=== PATIENT | male | born 1955 | race Caucasian/White ===

== ENCOUNTER 2018-05-23 02:15 | Observation (INO) | payer MEDICAID ==
[2018-05-23] VITALS (12 sets, daily range): BP systolic 98–136; BP diastolic 60–85; Ht 175.3 cm; Wt 85.1 kg
[~2018-05-23] VITALS: Ht 175.3 cm; Wt 85.1 kg
--- NOTE | ~2018-05-23 | HEMODYNAMI ---
PATIENT:MONSTER NATH MEDICAL RECORD: [id number] : 57 LOCATION:[address] [id number] ADMISSION DATE: 05/23/18 Generatedon:05/23/201817:28 Patient name: MONSTER NATH Patient #: [id number] SSN: : 1955 Date of study: 05/23/2018 Page: Of Hemodynamic Procedure Report Patient Data Patient Demographics Procedure consent was obtained First Name: MONSTER Gender: Male Last Name: PHAM : 1955 Patient #: [id number] Age: 63 year(s) Race: Unknown Additional ID: [id number] Contact details [address]: [address] [place], [place] [address] Phone: [phone] State: [place] City: [place] Zip code: [address] Past Medical History Allergies Allergen Reaction Date Comments Reported Other allergy 05/23/2018 Admission Admission Data Admission Date: 05/23/2018 Admission Time: 3:36 Room #: D.2128 Lab Results Lab Result Date: 05/23/2018 Lab Result Time: 0:00 Biochemistry Name Units Result Min Max BUN mg/dl 9 --(*---)-- 7 18 Creatinine mg/dl 1 --(--*-)-- 0.6 1.3 CBC Name Units Result Min Max Hematocrit % 53.3 --(---*)-- 42 54 Hemoglobin g/dl 19.2 --(----)-* 13.5 17.5 Procedure Procedure Types Cath Procedure Diagnostic Procedure C [facility] w/Coronaries PCI Procedure Coronary Stent Coronary Stent Initial Procedure Description Procedure Date Procedure Date: 05/23/2018 Procedure Start Time: 17:14 Procedure End Time: 17:26 Procedure Staff Name Function Jake Elkins MD Performing Physician Brant Brown RT Diagnostic Tech Annabelle Cheema RT Scrub Yovani Robins RN Nurse Costa Perry RT Monitor Procedure Data Cath Procedure Fluoroscopy Diagnostic fluoroscopy Total fluoroscopy Time: 2.9 time: 2.9 min min Diagnostic fluoroscopy Total fluoroscopy dose: 167 dose: 167 mGy mGy Contrast Material Contrast Material Type Amount (ml) Isovue 300 73 Entry Location Entry Primary Successful Side Size Upsize Upsize Entry Closure Newby ccessful Closure Location (Fr) 1 (Fr) 2 (Fr) Remarks Device Remarks Radial Right 6 Fr Mechanical artery Short Compression Estimated blood loss: 10 ml Diagnostic catheters Device Type Used For End Catheter Placement DIAGNOSTIC Benton 110cm 5 Procedure Fr catheter ([id number]) Procedure Complications No complications Procedure Medications Medication Administration Route Dosage 0.9% NaCl I.V. 100 ml/hr Oxygen etCO2 Nasal cannula 2 l/min Heparin Flush Bag added to field 2 bags (1000units/500ml NS) Lidocaine 2% added to field 20 Radial Cocktail added to field 1 syringe (Verapomil 2mg/Nitro 400mcg/Heparin 1500units) Fentanyl I.V. 50 mcg Versed I.V. 1 mg Radial Cocktail I.A. 1 syringe (Verapomil 2mg/Nitro 400mcg/Heparin 1500units) Fentanyl I.V. 50 mcg Versed I.V. 1 mg Heparin Bolus I.V. 4000 units Integrilin (Bolus 8.5 ml 2mg/ml) Plavix P.O. 600 mg Integrilin (Bolus wasted 1.5 ml 2mg/ml) Hemodynamics Rest HGB: 19.2 (g/dl) Heart Rate: 70 (bpm) Pressure Samples Time Site Value (mmHg) Purpose Heart Use Rate(bpm) 17:17 AO 86/58(71) Snapshot 88 Snapshots Pre Cath Intra NCS Post Cath Vital Signs Time Heart Resp SPO2 etCO2 NIBP Rhythm Pain Sedation Rate (ipm) (%) (mmHg) (mmHg) Status Level (bpm) 17:08:08 73 17 90 0 116/70(84) NSR 0 (11) 10(A) , No pain 17:12:20 67 16 90 0 103/67(80) NSR 0 (11) 9(A) , No pain 17:16:31 95 17 91 0 102/64(86) NSR 0 (11) 9(A) , No pain 17:22:06 82 17 91 0 97/61(76) NSR 0 (11) 9(A) , No pain 17:26:15 81 16 89 0 107/66(92) NSR 0 (11) 10(A) , No pain Medications Time Medication Route Dose Verified Delivered Reason Not es Effectiveness by by 17:06:39 0.9% NaCl I.V. 100 Yovani Yovani Per physician ml/hr Shimon Robins RN RN 17:06:49 Oxygen etCO2 2 l/min Yovani Yovani for low 02 sats Nasal Lorigan Shimon cannula RN RN 17:07:04 Heparin Flush added 2 bags Yovani Yovani used for Bag to Lorigan Shimon procedure (1000units/500ml field RN RN NS) 17:07:13 Lidocaine 2% added 20ml Yovani Yovani for local to vial Lorigan Lorigan anesthetic field RN RN 17:07:33 Radial Cocktail added 1 Yovani Yovani used for (Verapomil to syringe Lorigan Shimon procedure 2mg/Nitro field RN RN 400mcg/Heparin 1500units) 17:11:16 Fentanyl I.V. 50 mcg Yovani Yovani for sedation Shimon Robins RN RN 17:11:23 Versed I.V. 1 mg Yovani Yovani for sedation Shimon Robins RN RN 17:16:34 Radial Cocktail I.A. 1 Yovani Jake for (Verapomil syringe Sharminigan Severo RAHMAN vasodilation 2mg/Nitro RN 400mcg/Heparin 1500units) 17:17:04 Fentanyl I.V. 50 mcg Yovani Yovani for sedation Shimon Robins RN RN 17:17:09 Versed I.V. 1 mg Yovani Yovani for sedation Shimon Robins RN RN 17:20:38 Heparin Bolus I.V. 4000 Jake Yovani for units Severo Robins anticoagulation RN 17:22:07 Integrilin 8.5 ml Jake Yovani for (Bolus 2mg/ml) Severo Robins antiplatelet RN therapy 17:25:28 Plavix P.O. 600 mg Ajke Yovani for Severo Robins antiplatelet RN therapy 17:27:01 Integrilin wasted 1.5 ml Jake Yovani for (Bolus 2mg/ml) Severo Robins antiplatelet RN therapy Procedure Log Time Note 16:45:13 Brant Brown RT(R) sent for patient. Start room use. 16:57:20 Signed procedure consent form obtained from patient. 16:57:21 Diagnostic Cath status Elective 16:57:22 Time tracking: Regular hours (M-F 7:00 - 5:00) 16:57:24 Plan of Care:Hemodynamics will remain stable., Cardiac rhythm will remain stable., Comfort level will be maintained., Respiratory function will remain adequate., Patient/ family verbilizes understanding of procedure., Procedure tolerated without complication., Recovers from procedure without complications.. 16:57:30 Patient received from Med II to CCL 3 Alert and oriented. Tansferred to table in Supine position. 16:57:31 Warm blankets applied, and rk hugger turned on for patient comfort. 16:57:31 Correct patient and procedure confirmed by team. 16:57:32 ECG and BP/O2 sat monitors applied to patient. 17:06:39 0.9% NaCl 100 ml/hr I.V. was administered by Yovani Robins RN; Per physician; 17:06:49 Oxygen 2 l/min etCO2 Nasal cannula was administered by Yovani Robins RN; for low 02 sats; 17:06:57 Vital chart was started 17:07:04 Heparin Flush Bag (1000units/500ml NS) 2 bags added to field was administered by Yovani Robins RN; used for procedure; 17:07:13 Lidocaine 2% 20ml vial added to field was administered by Yovani Robins RN; for local anesthetic; 17:07:33 Radial Cocktail (Verapomil 2mg/Nitro 400mcg/Heparin 1500units) 1 syringe added to field was administered by Yovani Robins RN; used for procedure; 17:07:34 Baseline sample Acquired. 17:07:39 Rhythm: sinus rhythm 17:07:40 Full Disclosure recording started 17:07:41 Pre-procedure instructions explained to patient. 17:07:41 Pre-op teaching completed and patient verbalized understanding. 17:07:49 Family in patients room. 17:08:11 Patient allergic to Other allergy 17:08:18 Is patient on blood thinner?No 17:08:19 Patient diabetic? No. 17:08:23 Previous problem with sedation/anesthesia? No ? 17:08:26 Snore? Yes 17:08:27 Sleep apnea? No 17:08:28 Deviated septum? No 17:08:29 Opens mouth fully? Yes 17:08:29 Sticks out tongue? Yes 17:08:32 Airway obstruction? No ? 17:08:41 Dentures? Yes ? 17:08:44 Pre procedure: right dorsailis pedis pulse 2+ Normal; easily identifiable; not easily obliterated 17:08:46 Modified Thai's test Ulnar < 7 seconds 17:08:48 Patient pain scale 0/10 ?. 17:08:55 IV patent on arrival in right wrist with 0.9% NaCl at [facility]. 17:: Lab Result : BUN 9 mg/dl 17:: Lab Result : Creatinine 1 mg/dl 17:: Lab Result : Hemoglobin 19.2 g/dl 17:: Lab Result : Hematocrit 53.3 % 17::30 Lab results completed and on chart. 17:09:33 Right Radial & Right Groin area was prepped with chlora-prep and draped in sterile fashion 17:09:34 Alarms reviewed by R. N. 17:09:34 Sharps counted by scrub and verified by R.N. 17:09:37 Use device set Radial Dx or PCI 17:09:39 ACIST Syringe (00801) opened to sterile field. 17:09:41 Bag Decanter (2002S) opened to sterile field. 17:09:42 ACIST Hand Control (66939) opened to sterile field. 17:09:42 ACIST Manifold (13200) opened to sterile field. 17:09:43 Tegaderm 4 x 4 (1626W) opened to sterile field. 17:09:45 Medline Cath Pack ([id number]) opened to sterile field. 17:09:45 DIAGNOSTIC WIRE .035 260cm J wire (774561) opened to sterile field. 17:09:46 MBrace Wrist Support ([id number]) opened to sterile field. 17:09:47 SHEATH 6FR Slender (29-8656) opened to sterile field. 17:11:00 --------ALL STOP TIME OUT------ 17:11:00 Final Timeout: patient, procedure, and site verified with staff and physician. All members of the team are in agreement. 17:11:02 Right Radial & Right Groin site verified by team. 17:11:16 Fentanyl 50 mcg I.V. was administered by Yovani Robins RN; for sedation; 17:11:23 Versed 1 mg I.V. was administered by Yovani Robins RN; for sedation; 17:11:32 Maximum allowable Isovue 300 dose 300ml. Physician notified. (300ml for normal creatinines. For patients with creatinine of 1.7 or higher multiply weight(kg) x 5 divided by creatinine.) 17:11:37 Fire Safety Assessment: A--An alcohol-based skin anteseptic being used preoperatively., C--Open oxygen or nitrous oxide is being used., D--An ESU, laser, or fiber-optic light is being used. 17:11:40 Physical assessment completed. ASA score P 2 - A patient with mild systemic disease as per Jake Elkins MD. 17:11:42 Sedation plan: IV Moderate Sedation Medication:Versed, Fentanyl 17:14:23 Procedure started. 17:14:27 Local anesthetic to right radial artery with Lidocaine 2% by Jake Elkins MD.INITIAL ACCESS ONLY 17:15:41 A 6 Fr Short sheath was inserted into the Right Radial artery 17:16:25 Zero performed for pressure channel P1 17:16:27 Zero performed for pressure channel P1 17:16:34 Radial Cocktail (Verapomil 2mg/Nitro 400mcg/Heparin 1500units) 1 syringe I.A. was administered by Jake Elkins MD; for vasodilation; 17:16:39 A DIAGNOSTIC Benton 110cm 5 Fr catheter ([id number]) was advanced over the wire and used for Procedure. 17:16:52 LV angiography performed. 17:16:53 LV gram done using DIMAS 17:16:57 EF : 60 % 17:17:04 Fentanyl 50 mcg I.V. was administered by Yovani Robins RN; for sedation; 17:17:09 Versed 1 mg I.V. was administered by Yovani Robins RN; for sedation; 17:17:17 LCA angiography performed. 17:18:22 RCA angiography performed. 17:18:24 Catheter exchanged over wire. 17:18:27 Use device set SEVERO PCI 17:18:35 GUIDE 6FR AR 2.0 catheter ([id number]) opened to sterile field. 17:18:38 CHOICE PT Extra Support 182cm wire ([id number]) opened to sterile field. 17:18:43 INFLATOR Merit BasixCompak (MH5795) opened to sterile field. 17:20:08 6 Fr AR 2 guide catheter was inserted over the wire 17:20:19 CPTXS wire advanced. 17:20:38 Heparin Bolus 4000 units I.V. was administered by Yovani Robins RN; for anticoagulation; 17::54 Wire advanced across lesion. 17:21:21 Inflate balloon Inflation number: 1 A EUPHORA 2.5 x 20 Balloon ([id number]) was prepped and advanced across the Mid RCA, then inflated to 9 ANDERSON for 0:10 (min:sec). 17::28 Inflation number: 2 The EUPHORA 2.5 x 20 Balloon ([id number]) was reinflated across the Mid RCA, to 11 ANDERSON for 0:10 (min:sec). 17:21:52 Balloon removed over the wire. 17:22:07 Integrilin (Bolus 2mg/ml) 8.5 ml was administered by Yovani Robins RN; for antiplatelet therapy; ::54 Place stent Inflation Number: 3 A INTEGRITY RX 2.5 x 26 stent ([id number]) was prepped and advanced across the Mid RCA. The stent was deployed at 13 ANDERSON for 0:10 (min:sec). 17:24:35 Stent catheter was removed intact over wire. 17:24:36 Wire removed. 17:24:36 Guide catheter removed. 17:24:39 TR BAND Standard ([id number]) opened to sterile field. 17:24:49 Sheath removed intact; hemostasis achieved with Mechanical Compression to the Right Radial artery. 17:24:51 Procedure ended.(Physican Out) 17:25:25 Fluoroscopy time 02.90 minutes. 17:25:28 Plavix 600 mg P.O. was administered by Yovani Robins RN; for antiplatelet therapy; 17:25:29 Fluoroscopy dose: 167 mGy 17:25:29 Flurop Dose total: 167 17:25:32 Contrast amount:Isovue 300 73ml. 17:25:34 Sharps counted by scrub and verified by R.N. 17:25:36 TR band inflated with 11cc of air. 17:25:38 Insertion/operative site no bleeding no hematoma. 17:25:40 Post Procedure Pulses reassessed and unchanged 17:25:41 Post-procedure physical assessment completed. ASA score P 2 - A patient with mild systemic disease as per Jake Elkins MD. 17:25:44 Post procedure rhythm: unchanged. 17:25:47 Estimated blood loss: 10 ml 17:25:47 Post procedure instruction explained to patient.Patient verbalizes understanding. 17:25:48 Patient needs reinforcement of post procedure teaching. 17:25:54 Procedure type changed to Cath procedure, Diagnostic procedure, LHC, LHC w/Coronaries, PCI procedure, Coronary Stent, Coronary Stent Initial 17:25:56 Procedure and supply charges have been captured, reviewed, submitted and are correct. 17:25:59 Procedure Complication : No complications 17:26:19 Vital chart was stopped 17:26:19 See physician's report for complete and final results. 17:26:21 Report given to PCU. 17:26:22 Patient transfered to PCU with Bed. 17:26:24 Procedure ended. 17:26:24 Full Disclosure recording stopped 17:27:01 Integrilin (Bolus 2mg/ml) 1.5 ml wasted was administered by Yovani Robins RN; for antiplatelet therapy; 17:27:06 End room use (Document Last) Intervention Summary Intervention Notes Time ActionType Lesion and Equipment Action# Pressure Duration Attributes Used 17:21:21 Inflate Mid RCA EUPHORA 2.5 1 9 00:10 balloon x 20 Balloon ([id number]) 17:21:28 Reinflate Mid RCA EUPHORA 2.5 2 11 00:10 balloon x 20 Balloon ([id number]) 17:22:54 Place stent Mid RCA INTEGRITY RX 3 13 00:10 2.5 x 26 stent ([id number]) Device Usage Item Name Manufacture Quantity Catalog Number Hospital Part Current [facility] Lot# / Charge Number Stock Stock Serial# Code ACIST Acist 1 97526 276560 077710 570256 20 Syringe Medical (51307) Systems Inc Bag Decanter Microtek 1 2001S 818223 97499 819939 5 () Medical Inc. ACIST Hand Acist 1 55455 939311 952812 954327 5 Control Medical (49205) Systems Inc ACIST Acist 1 22416 495048 128014 444379 5 Manifold Medical (96753) Systems Inc Tegaderm 4 x 3M 1 1626W 742049 810638 976578 5 4 (1626W) Medline Cath Medline 1 [id number] 631103 50993 686424 5 Pack ([id number]) DIAGNOSTIC St Shahab 1 052862 735023 822666 298223 30 WIRE .035 260cm J wire (393341) MBrace Wrist Advanced 1 140-0250-00 984320 16418 277639 5 Support Vascular ([id number]) Dynamics SHEATH 6FR Terumo 1 [id number] 065879 954139 187537 5 Slender (80-1060) DIAGNOSTIC Terumo 1 40-2723 293989 359801 440904 5 Benton 110cm 5 Fr catheter (868029) GUIDE 6FR AR Medtronic 1 [id number] 699262 74510 321585 1 2.0 catheter (KA2RR55) CHOICE PT Clayton 1 [id number] 530785 234873 092565 5 Extra Scientific Support 182cm wire ([id number]) INFLATOR Merit 1 HE7972 329672 377852 730605 15 [employer] ([employer]) Medical BasixCompak (QQ9002) EUPHORA 2.5 Medtronic 1 [id number] 548637 162971 241177 5 [id number] x 20 Balloon ([id number]) INTEGRITY RX Medtronic 1 [id number] 546158 445126 033324 5 [id number] 2.5 x 26 stent ([id number]) TR BAND Terumo 1 [id number] 954464 627797 757320 40 Standard ([id number]) Signature Audit [place] Stage Time Signature Unsigned Intra-Procedure 05/23/2018 Costa Perry 5:28:34 PM RT(R) Signatures Monitor : Costa Perry RT Signature : Date : Time : [facility] [address] [place] [address]
--- NOTE | ~2018-05-23 | DS ---
PATIENT:MONSTER NATH :57 MEDICAL RECORD: [id number] DISCHARGE SUMMARY ADMISSION DATE: 05/23/18 DISCHARGE DATE: 05/23/18 DATE OF SERVICE: 05/23/2018 DIAGNOSES: 1. Percutaneous transluminal coronary angioplasty stent of right coronary artery. 2. Coronary artery disease. 3. Unstable angina. 4. Smoking history. HOSPITAL COURSE: Mr. Nath presents with unstable anginal symptomatology, found to have 99% stenosis of the RCA, underwent successful PTCA stent of the RCA, discharged home with the addition of aspirin and Plavix to his medical regimen. Follow up with [facility] in 1 month. TRANSINT:[id number] Voice Confirmation ID: [id number] DOCUMENT ID: [id number] JUSTIN RIVERA MD CC: [id number] DICTATION DATE: 05/23/181727 COUNSELING PROGRAM LEADER: 05/24/18 0717 DIS IN 05/23/18 [place] [id number] [place] [id number]
--- NOTE | ~2018-05-23 | OP ---
PATIENT NAME: MONSTER NATH MEDICAL RECORD: [id number] :57 LOCATION:D.M2 D.2128 ADMISSION DATE:05/23/18 SURGEON: JUSTIN RIVERA MD DATE OF OPERATION: 05/23/2018 PROCEDURES: 1. PTCA and stent to the RCA. 2. Left heart catheterization. 3. Selective coronary angiography. 4. Left ventriculogram. INDICATIONS: Unstable angina and coronary artery disease. PROCEDURE IN DETAIL: After informed consent was obtained and after a detailed description of risks, benefits as well as alternative therapies, the patient elected to proceed with angiogram and angioplasty. The right radial area was prepped and draped in normal sterile fashion. Right radial artery was cannulated via modified Seldinger technique with placement of 6-Indonesian sheath. All catheters exchanged through this sheath. FINDINGS: Left ventriculogram was performed in standard 30-degree DIMAS view, reveals good cardiac wall motion throughout all segments. Overall ejection fraction estimated at 60%. SELECTIVE CORONARY ANGIOGRAPHY: 1. Left main is with no significant angiographic disease. 2. Left anterior descending has moderate irregularities but no flow-limiting stenosis. 3. Left circumflex has moderate irregularities but no flow-limiting stenosis. 4. Right coronary artery has 99% stenosis at mid vessel. PTCA AND STENT OF THE RIGHT CORONARY: The stent used was a 2.5 x 26 mm Integrity. Result was 0% residual stenosis. OVERALL IMPRESSION: Successful percutaneous transluminal coronary angioplasty stent of the right coronary artery going from 99% initial stenosis to 0% residual. TRANSINT:[id number] Voice Confirmation ID: [id number] DOCUMENT ID: [id number] JUSTIN RIVERA MD CC: [id number] DICTATION DATE: 05/23/181729 POLE FRAMER MACHINE: 05/23/18 2340 DIS IN 05/23/18 [place] [id number] [place] [address]
[2018-05-23 02:31] LABS: BASOPHILS 0.5 % (0-2); EOSINOPHILS 5.1 % (0-7); HEMATOCRIT 53.3 % (42.0-54.0); HEMOGLOBIN 19.2 g/dL (13.5-17.5); IMMATURE GRANULOCYTES 0.2 % (0-5); LYMPHOCYTES 35.6 % (15-50); MCH 32.1 pg (26.0-34.0); MEAN PLATELET VOLUME 10.5 fL (7.4-10.4); NEUTROPHILS 52.6 % (40-80); PLATELET COUNT 171 10x3/uL (130-400); RBC 5.99 10x6/uL (4.20-6.10); WBC 11.1 10x3/uL (4.8-10.8)
[2018-05-23 02:40] LABS: APTT 26.4 SECONDS (22.8-39.4); INR 1.05 (0.85-1.17); PROTIME 13.2 SECONDS (11.6-15.0)
[2018-05-23 02:45] LABS: ALBUMIN 3.9 g/dL (3.4-5.0); ALKALINE PHOSPHATASE 122 U/L (46-116); ALT (SGPT) 23 U/L (10-68); CALC OSMOLALITY 280 mosm/kg (275-300); CALCIUM 9.4 mg/dL (8.5-10.1); CARBON DIOXIDE 27.8 mmol/L (21.0-32.0); CHLORIDE - SERUM 101 mmol/L (98-107); GLUCOSE 173 mg/dL (74-106); POTASSIUM - SERUM 3.7 mmol/L (3.5-5.1); PROTEIN - SERUM 8.4 g/dL (6.4-8.2); SODIUM 139 mmol/L (136-145); UREA NITROGEN 9 mg/dL (7-18); eGFR NON AFRICAN AMERICAN 80 mL/min (90-120)
[2018-05-23 02:55] LABS: CKMB 1.2 U/L (0.0-3.6); CREATINE KINASE 60 UL (21-232); TROPONIN-I < 0.017 ng/mL (0.000-0.060)
--- NOTE | 2018-05-23 03:00 | NUR ---
PT'S SON CALLED FOR THE NURSE, PT MOANING OUT AND C/O SEVERE CP THAT HAS INCREASED MD NOTIFIED
--- NOTE | 2018-05-23 03:08 | NUR ---
PT STATES STILL RATES PAIN 5/10 AFTER MORPHINE 4MG IV. STATES IS STILL GOING DOWN HIS ARM. SPOKE TO DR ARREDONDO- ORDER FOR MORPHINE 4MG IV TO BE REPEATED GIVEN.
--- NOTE | 2018-05-23 03:44 | NUR ---
PT C/O CP GETTING WORSE AGAIN AND MOANING OUT, NOTIFIED AND NEW ORDERS GIVEN
--- NOTE | 2018-05-23 04:10 | NUR ---
PT TAKEN TO CT
--- NOTE | 2018-05-23 05:54 | NUR ---
ADMIT TO ROOM 2128 FROM ER. ALERT/ORIENTED. ADMISSION HISTORY AND ASSESSMENT COMPLETED. NO HOME MEDS. TELEMETRY STARTED. PLAN OF CARE INITIATED. MONITOR AND PROVIDE A SAFE ENVIRONMENT.
[2018-05-23] MEDS ORDERED: BAYER CHEWABLE81 MG PO (05:58)
--- NOTE | 2018-05-23 06:14 | NUR ---
CHANNEL LIP STIFFENER INSOLES ASSESSMENT COMPLETED. VSS. PT DENIED ANY DISCOMFORT. SB PER CM HR 54. O2 2LNC. LUNGS DIMINISHED IN BASES BILAT. MORALES. PLAPABLE PERIPHERAL PULSES. TOENAILS TO L FOOT LONG AND CURLED. POOR HYGEINE. SON AT BEDSIDE. SR UP X2, CALL LIGHT WITHIN REACH. IV TO RFA SL.
--- NOTE | 2018-05-23 07:15 | NUR ---
PT LYING IN BED. ALERT AND ORIENTED. O2 AT 2L VIA NC. RIGHT FA 20G IV SL. SON AT BEDSIDE. EKG DONE. SB ON THE MONITOR. NPO UNTIL SEEN BY PT AWARE OF NPO STATUS. PT HAS NO FURTHER NEEDS AT THIS TIME. WILL CONTINUE WITH PLAN OF CARE. BED LOW. CL IN REACH.
[2018-05-23 07:44] LABS: CKMB 2.4 U/L (0.0-3.6); CREATINE KINASE 60 UL (21-232)
[2018-05-23 07:48] LABS: TROPONIN-I 0.091 ng/mL (0.000-0.060)
--- NOTE | 2018-05-23 08:30 | NUR ---
PER CARDIOLOGY, GREGG GUNTER SHE STATES PT WILL GO FOR A HEART CATH LATER TODAY AND PT CAN HAVE BREAKFAST TRAY. BREAKFAST TRAY ORDERED.
--- NOTE | 2018-05-23 10:48 | NUR ---
HEART CATH CONSENTS SIGNED.
--- NOTE | 2018-05-23 12:06 | NUR ---
I have reviewed this patient and I concur with the Shift Assessment completed by the Licensed Practical Nurse today this shift.
[2018-05-23 13:28] LABS: CKMB 80.4 U/L (0.0-3.6); CREATINE KINASE 458 UL (21-232); TROPONIN-I 5.607 ng/mL (0.000-0.060)
--- NOTE | 2018-05-23 13:35 | NUR ---
TALKED TO NOHEMI IN COIL WINDING SUPERVISOR AND NOTIFIED HER OF PT'S INCREASED TROPONIN JUMP FROM 0.091 TO 5.067. SHE STATES SHE WILL NOTIFY DR. RIVERA.
--- NOTE | 2018-05-23 16:41 | NUR ---
PT TAKEN TO MANAGER RECRUITMENT VIA BED.
--- NOTE | 2018-05-23 17:21 | NUR ---
SPOKE WITH PT'S DAUGHTER PRASHANTH NATH VIA TELEPHONE WHO LIVES IN [place] SHE LEFT HER PHONE NUMBER [phone]. SHE STATES HER TWO BROTHERS WILL BE SWITCHING OUT STAYING WITH PT.
--- NOTE | 2018-05-23 17:30 | NUR ---
SPOKE WITH KAYKAY NEWELL FROM KITCHEN LEAD. HE STATES LEFT HEART CATH BY DR. RIVERA. HE PLACED X1 STENT RCA. PT GOT X2 VERSED, 100 FENTANYL, 4000 UNITS OF HEPARIN, ENTGROLIN 17MG IV BOLUS, 600MG PLAVIX. TR BAND TO THE RIGHT WRIST.
--- NOTE | 2018-05-23 17:40 | NUR ---
PT RETURNED FROM DRAFTER STRUCTURAL WITH HOB ELEVATED. RIGHT WRIST TR BAND C/D/I. PP CHECKED. ALERT AND ORIENTED. O2 AT 2L VIA NC. VS STABLE. PT STATES HE WANTS TO GO HOME TONIGHT I STATED TO PT IT WON'T BE UNTIL AFTER 10:30PM(2229) OR SO. HE STATED THAT WILL BE FINE. DINNER TRAY DELIVERED. I STATED TO PT HE CAN EAT TRAY JUST DON'T BEND THE RIGHT WITST. PT VERBALIZED UNDERSTANDING. PT'S SON AT BEDSIDE. BED LOW. CL IN REACH.
[2018-05-23] MEDS ORDERED: PLAVIX75 MG PO (17:58)
--- NOTE | 2018-05-23 22:05 | NUR ---
TR BAND REMOVED FROM RIGHT WRIST, NO ACTIVE BLEEDING, SWELLING OR HEMATOMA NOTED. COVERED WITH 2X2 AND TEGADERM. DISCHARGE INSTRUCTIONS GIVEN ALONG WITH PLAVIX PRESCRIPTION. TELEMETRY REMOVED AND RETURNED TO TOW TRUCK OPERATOR. PTS SON AT BED SIDE TO DRIVE PT HOME.
== END 2018-05-23 22:20 | disposition home or self-care (01) ==
LOC: D.ER 02:15 → D.M3 03:36 → D.M2 03:36 → OBSVTIME 03:36 → D.M2 05:15
PROVIDERS: Emergency Medicine; ADMIT Internal Medicine Interventional Cardiology; ATTEND Internal Medicine Interventional Cardiology
DX: I21.4 Non-ST elevation (NSTEMI) myocardial infarction (principal); I25.110 Atherosclerotic heart disease of native coronary artery with unstable angina pectoris; Z87.891 Personal history of nicotine dependence

== ENCOUNTER 2018-10-18 09:03 | Emergency (ER) | payer MEDICAID ==
[~2018-10-18] VITALS: Ht 175.3 cm; Wt 88.6 kg
[~2018-10-18 09:03] MED LIST: BAYER CHEWABLE81 MG PO; PLAVIX75 MG PO
[2018-10-18 09:11] VITALS: BP 159/97; Ht 175.3 cm; Wt 88.6 kg
[2018-10-18] MEDS ORDERED: HYDROCODON-ACE1 EAC7 PO (09:50)
[2018-10-18] MEDS ORDERED: CYCLOBENZAPRINE10 MG PO (09:50)
[2018-10-18] MEDS ORDERED: VOLTAREN75 MG PO (09:50)
[2018-10-18 11:47] LABS: APPEARANCE CLEAR (CLEAR); BILIRUBIN NEGATIVE (NEGATIVE); COLOR YELLOW (YELLOW); EPITHELIAL CELLS RARE /hpf (0-5); GLUCOSE NEGATIVE (NEGATIVE); KETONE NEGATIVE (NEGATIVE); NITRITE NEGATIVE (NEGATIVE); PROTEIN NEGATIVE (NEGATIVE); SPECIFIC GRAVITY 1.025 (1.005-1.020); UROBILINOGEN NORMAL (NORMAL); WHITE CELLS - URINE RARE /hpf (0-5)
[2018-10-18 11:48] LABS: BACTERIA FEW /hpf (NONE SEEN); RED CELLS - URINE OCC /hpf (0-5)
== END 2018-10-18 12:06 | disposition home or self-care (01) ==
LOC: D.ER 09:03
PROVIDERS: Emergency Medicine
DX: M54.16 Radiculopathy, lumbar region (principal); M47.896 Other spondylosis, lumbar region